=== PATIENT | female | born 1990 ===

== ENCOUNTER 2018-06-06 20:44 | Emergency (ER) | payer OTHER, BC ==
[2018-06-06 20:53] VITALS: BP 102/70; PULSE 86; RESP 20; TEMP 99; O2SAT 96
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
== END 2018-06-06 21:35 | disposition home or self-care (01) ==
LOC: C.ER 20:44
DX: T14.8XXA Other injury of unspecified body region, initial encounter (principal); V49.40XA Driver injured in collision with unspecified motor vehicles in traffic accident, initial encounter; Y92.410 Unspecified street and highway as the place of occurrence of the external cause